=== PATIENT | female | born 2005 | race Hispanic/Latino ===

== ENCOUNTER 2023-02-02 05:50 | Emergency (ER) | payer MEDICAID ==
[~2023-02-02] VITALS: Ht 154.9 cm; Wt 76.2 kg
[~2023-02-02 05:50] MED LIST: MACR100 PO
[2023-02-02 06:19] LABS: BASOPHILS % (AUTO) 0.2 % (0.0-5.0); EOSINOPHILS % (AUTO) 1.1 % (0.0-8.0); HEMATOCRIT 30.5 % (36-48); LYMPHOCYTES % (AUTO) 27.2 % (21.0-51.0); MEAN CORPUSCULAR HEMOGLOBIN 18.5 pg (27.0-33.0); MEAN CORPUSCULAR HGB CONC 28.5 g/dL (32.0-36.0); MEAN CORPUSCULAR VOLUME 64.8 fL (80-100); MONOCYTES % (AUTO) 6.2 % (3.0-13.0); NEUTROPHILS % (AUTO) 64.9 % (40.0-77.0); PLATELET COUNT (AUTO) 334 K/uL (130-400); RED BLOOD CELL COUNT(AUTO) 4.71 MIL/uL (4.00-5.50); RED CELL DISTRIBUTION WIDTH 14.8 % (11.0-15.5); WHITE BLOOD COUNT (AUTO) 8.4 K/uL (4.8-10.8)
[2023-02-02 06:20] LABS: APPEARANCE,URINE CLEAR (CLEAR); BILIRUBIN,URINE NEGATIVE (NEGATIVE); COLOR,URINE LIGHT-YELLOW (YELLOW); GLUCOSE, URINE (UA) NEGATIVE (NEGATIVE); KETONES,URINE NEGATIVE (NEGATIVE); LEUKOCYTE ESTERASE ,URINE NEGATIVE Leu/uL (NEGATIVE); NITRATE,URINE NEGATIVE (NEGATIVE); OCCULT BLOOD,URINE NEGATIVE (NEGATIVE); PH,URINE 5.5 (5.0-8.0); PROTEIN,URINE NEGATIVE (NEGATIVE); UROBILINOGEN,URINE 0.2 mg/dL (0.2-1.0)
[2023-02-02 06:23] LABS: HCG,QUALITATIVE URINE NEGATIVE (NEGATIVE)
[2023-02-02 06:26] LABS: CREATININE 0.6 mg/dL (0.5-1.5); POTASSIUM 3.6 mmol/L (3.5-5.1)
[2023-02-02 06:31] LABS: ALBUMIN 3.8 g/dL (3.5-5.0); TOTAL PROTEIN, SERUM 7.5 g/dL (6.0-8.3)
[2023-02-02] MEDS ORDERED: LACTATED RINGERS 1000ML 1,000 ML IV ONE (11:00)
[2023-02-02] MEDS ORDERED: MORPHINE 2 MG SYG IVP ONE (11:30)
[2023-02-02] MEDS ORDERED: ONDANSETRON 4MG INJ IVP ONE (11:30)
[2023-02-02] MEDS ORDERED: IOHEXOL 350 MG/ML 100ML INFUS..BTL IV ONE (12:37)
[2023-02-02 13:27] VITALS: BP 100/46; PULSE 80; RESP 16; O2SAT 100
== END 2023-02-02 13:56 | disposition home or self-care (01) ==
LOC: EDH 05:50
DX: R10.31 Right lower quadrant pain (principal)
CPT/HCPCS: 99285; 74177; 96374; 76856; 96361; 96375; 80053; 85025; 81003; 81025; 36415; J7120; J2270; J2405; Q9967

== ENCOUNTER 2023-10-18 22:30 | Emergency (ER) | payer MEDICAID, OTHER ==
[~2023-10-18] VITALS: Ht 152.4 cm; Wt 81.6 kg
[2023-10-18] MEDS: ACETAMINOPHEN 500 MG TABLET PO ONE (22:45)
[2023-10-18 23:10] LABS: SARS-CoV-2, RNA, NAAT NEGATIVE SARS CoV-2 (NEGATIVE)
[2023-10-18 23:11] LABS: RAPID GROUP A STREP negative (NEGATIVE)
[2023-10-18 23:19] LABS: INFLUENZA TYPE A Negative For Type A (NEGATIVE); INFLUENZA TYPE B Negative For Type B (NEGATIVE)
[2023-10-18] MEDS ORDERED: ONDA4TAB10 PO (23:41)
[2023-10-18] MEDS ORDERED: AMOX1TAB16 PO (23:41)
[2023-10-18] MEDS: ONDANSETRON ODT 4MG TAB SL ONE (23:48)
[2023-10-18] MEDS: CEFTRIAXONE 1G VIAL IM ONE (23:48)
[2023-10-18 23:56] VITALS: BP 137/85; PULSE 88; RESP 19; O2SAT 99
== END 2023-10-18 23:57 | disposition home or self-care (01) ==
LOC: EDH 22:30
DX: O26.891 Other specified pregnancy related conditions, first trimester (principal); J03.90 Acute tonsillitis, unspecified; O21.9 Vomiting of pregnancy, unspecified; Z3A.01 Less than 8 weeks gestation of pregnancy; Z20.822 Contact with and (suspected) exposure to COVID-19
CPT/HCPCS: 99283; 87635; 87880; 87804 ×2; 96372; J0696

== ENCOUNTER 2023-10-26 03:07 | Emergency (ER) | payer OTHER ==
[~2023-10-26] VITALS: Ht 154.9 cm; Wt 80.3 kg
[~2023-10-26 03:07] MED LIST changes: +AMOX1TAB16 PO; +ONDA4TAB10 PO
[2023-10-26 03:34] LABS: APPEARANCE,URINE CLOUDY (CLEAR); BILIRUBIN,URINE NEGATIVE (NEGATIVE); COLOR,URINE YELLOW (YELLOW); GLUCOSE, URINE (UA) NEGATIVE (NEGATIVE); KETONES,URINE NEGATIVE (NEGATIVE); LEUKOCYTE ESTERASE ,URINE 25 Leu/uL (NEGATIVE); NITRATE,URINE NEGATIVE (NEGATIVE); OCCULT BLOOD,URINE NEGATIVE (NEGATIVE); PH,URINE 5.5 (5.0-8.0); PROTEIN,URINE 30 mg/dL (NEGATIVE); UROBILINOGEN,URINE 0.2 mg/dL (0.2-1.0)
[2023-10-26 03:37] LABS: ADD UA MICROSCOPIC YES
[2023-10-26 03:42] LABS: MUCUS,URINE MANY LPF (None Seen); SQUAMOUS EPITHELIAL CELL,UR MOD /HPF (0-2)
[2023-10-26] MEDS: 0.9%NACL 1000ML 1,000 ML IV ONE (04:42)
[2023-10-26] MEDS: ONDANSETRON 4MG INJ IVP ONE (04:43)
[2023-10-26 04:57] LABS: RAPID GROUP A STREP negative (NEGATIVE)
[2023-10-26 05:00] LABS: SARS-CoV-2, RNA, NAAT NEGATIVE SARS CoV-2 (NEGATIVE)
[2023-10-26 05:08] LABS: INFLUENZA TYPE A Negative For Type A (NEGATIVE)
[2023-10-26 05:09] LABS: BASOPHILS # (AUTO) 0.02 K/uL (0.00-0.20); BASOPHILS % (AUTO) 0.2 % (0.0-5.0); EOSINOPHILS # (AUTO) 0.03 K/uL (0.00-0.70); EOSINOPHILS % (AUTO) 0.4 % (0.0-8.0); HEMATOCRIT 30.4 % (36-48); IMMATURE GRANULOCYTE ABSOLUTE 0.04 K/uL (0-1); LYMPHOCYTES # (AUTO) 1.2 K/uL (1.0-4.8); LYMPHOCYTES % (AUTO) 14.8 % (21.0-51.0); MEAN CORPUSCULAR HEMOGLOBIN 18.2 pg (27.0-33.0); MEAN CORPUSCULAR HGB CONC 28.9 g/dL (32.0-36.0); MEAN CORPUSCULAR VOLUME 62.9 fL (80-100); MONOCYTES # (AUTO) 0.5 K/uL (0.1-1.0); MONOCYTES % (AUTO) 5.7 % (3.0-13.0); NEUTROPHILS # (AUTO) 6.5 K/uL (1.8-7.7); NEUTROPHILS % (AUTO) 78.4 % (40.0-77.0); PLATELET COUNT (AUTO) 228 K/uL (130-400); RED BLOOD CELL COUNT(AUTO) 4.83 MIL/uL (4.00-5.50); RED CELL DISTRIBUTION WIDTH 16.7 % (11.0-15.5); WHITE BLOOD COUNT (AUTO) 8.3 K/uL (4.8-10.8)
[2023-10-26 05:40] LABS: ALBUMIN 3.4 g/dL (3.5-5.0); BILIRUBIN,TOTAL 0.4 mg/dL (0.2-1.0); CREATININE 0.5 mg/dL (0.5-1.0); POTASSIUM 3.3 mmol/L (3.5-5.1); TOTAL PROTEIN, SERUM 7.1 g/dL (6.0-8.3)
[2023-10-26 05:46] LABS: INFLUENZA TYPE B Positive For Type B (NEGATIVE)
[2023-10-26 06:33] VITALS: BP 130/52; PULSE 86; RESP 14; O2SAT 100
[2023-10-26] MEDS ORDERED: ONDA-104 PO (06:51)
[2023-10-26] MEDS ORDERED: ACET325T51 PO (06:51)
== END 2023-10-26 07:03 | disposition home or self-care (01) ==
LOC: EDH 03:07
DX: O99.511 Diseases of the respiratory system complicating pregnancy, first trimester (principal); J10.1 Influenza due to other identified influenza virus with other respiratory manifestations; O26.891 Other specified pregnancy related conditions, first trimester; R10.30 Lower abdominal pain, unspecified; Z3A.01 Less than 8 weeks gestation of pregnancy; Z79.899 Other long term (current) drug therapy; Z20.822 Contact with and (suspected) exposure to COVID-19
CPT/HCPCS: 99285; 96374; 76801; 96361; 87635; 80053; 84702; 85025; 87088; 87880; 87804 ×2; 81001; 36415; J7030; J2405